=== PATIENT | male | born 1975 | race African-American/Black ===

== ENCOUNTER 2020-07-03 14:01 | Emergency (ER) | payer OTHER ==
[~2020-07-03] VITALS: Ht 165.1 cm; Wt 86.2 kg
[2020-07-03 14:34] VITALS: TEMP 97.8
[2020-07-03 15:04] LABS: PLATELET COUNT 146 K/uL (142-355)
[2020-07-03 15:14] LABS: POTASSIUM 3.7 mmol/L (3.6-5.2)
[2020-07-03 16:04] VITALS: BP 154/88
== END 2020-07-03 16:04 | disposition home or self-care (01) ==
LOC: ED 14:01
PROVIDERS: Hospitalist
DX: U07.1 COVID-19 (principal); J06.9 Acute upper respiratory infection, unspecified
CPT/HCPCS: 80053; 85027; 87502; 87635; 87651; 99283; U0003